=== PATIENT | male | born 1990 | race Caucasian/White ===

== ENCOUNTER 2019-02-20 19:24 | Emergency (ER) | payer SELFPAY ==
[~2019-02-20] VITALS: Ht 162.6 cm; Wt 99.8 kg
[2019-02-20 19:31] VITALS: BP 128/51
--- NOTE | 2019-02-20 19:31 | NUR ---
PT TAKEN TO BED 8
--- NOTE | 2019-02-20 19:50 | NUR ---
PT ARRVIED TO ED C/O SORE THROAT X 3 DAYS. RATES PAIN 5/10. TONSILS ARE SWOLLEN BILATERALLY ON VISUALIZATION. LEFT SHOWS WHITE PATCHES ON TONSILLS. LEFT EAR SHOWS KULWANT APPEARANCE. A & O X 4. NO RESP DISTRESS NOTED. AIRWAY IS PATENT AND CLEAR. VSS. NKA. NO PMH.
[2019-02-20 20:22] VITALS: BP 128/51
--- NOTE | 2019-02-20 20:22 | NUR ---
Patient discharged with v/s stable. Written and verbal after care instructions given and explained. Patient alert, oriented and verbalized understanding of instructions. Ambulatory with steady gait. All questions addressed prior to discharge. ID band removed. Patient advised to follow up with PMD. Rx of IBUPROFEN, AUGMENTIN given. Patient educated on indication of medication including possible reaction and side effects. Opportunity to ask questions provided and answered.
== END 2019-02-20 20:22 | disposition home or self-care (01) ==
LOC: MED 19:24
DX: J02.0 Streptococcal pharyngitis (principal); H92.02 Otalgia, left ear; H66.92 Otitis media, unspecified, left ear
CPT/HCPCS: 87081; 99283